=== PATIENT | female | born 1950 | race Caucasian/White ===

== ENCOUNTER 2017-04-03 18:01 | Emergency (ER) | payer MEDICARE, OTHER ==
[2017-04-03] MEDS ORDERED: fentaNYL 100 MCG/2 ML SDV IVPUSH ONE (19:05)
[2017-04-03] MEDS ORDERED: Sodium Chloride 0.9% 10 ML Syringe FLUSH PRN (19:05)
[2017-04-03] MEDS ORDERED: LORazepam 2 MG/ML MDV IVPUSH ONE (19:05)
--- NOTE | 2017-04-03 19:18 | EDM.PDOC ---
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 There is pain with urination. When she wiped herself, the first 12 hours there was some bleeding both in the toilet bowl and on the tissue. She was finally seen in the clinic 2 days ago because discomfort was not going away, was diagnosed with UTI and prescribed antibiotic, culture was negative. Symptoms have not improved in fact it got worse the pain is more intense and more frequent. Appetite is decreased. She did have nausea vomiting and sweating about 4 PM, one episode of emesis. No change in bowel habits, she always has loose stools 3-5 per day for years, she does occasionally get low potassium because this and consequently is on potassium replacement. No fever or chills She does feel a bit bloated. At it does feel like infection she's had in the past only much more intense. She 's been getting frequent urine infections, had for last year. Has seen urology and has had some surgical procedures done on her bladder to fix "the flap". She's been using Pyridium which is turned her urine orange, no improvement in her pain. Remote history of abdominal and inguinal hernia repair of hysterectomy and unilateral oophorectomy for endometriosis causing pain and subsequent oophorectomy of the other side because of the large ovarian cyst. Because of her chronic diarrhea she underwent negative colonoscopy and a CT scan 2 years ago, CT scan did show lower abdominal wall hernia which involved the bladder wall. Vaginal Pain Score (Numeric/FACES): 10 - Related Data Allergies Allergy/AdvReac Type Severity Reaction Status Date / Time codeine Allergy Chest Pain Verified 04/03/17 18:29 morphine Allergy Itching Verified 04/03/17 18:29 Home Meds: Home Meds Aspirin [Children's Aspirin] 81 mg PO BEDTIME 10/22/13 [History] atorvaSTATin [Lipitor] 10 mg PO BEDTIME 10/22/13 [History] Ascorbic Acid [Vitamin C] 1,000 mg PO DAILY 05/15/14 [History] Calcium Carbonate [Calcium] 1 tab PO BID 05/15/14 [History] Multivitamin with Minerals [Multiple Vitamin] 1 tab PO DAILY 05/15/14 [History] Omeprazole [Prilosec] 20 mg PO DAILY 05/15/14 [History] Sertraline [Zoloft] 150 mg PO DAILY 05/15/14 [History] Albuterol Sulfate [Ventolin Hfa] 2 puff INH Q4H PRN 11/19/15 [History] Magnesium Oxide [Magnesium] 1 tab PO BID 11/19/15 [History] Spironolactone [Aldactone] 25 mg PO BID 11/19/15 [History] Potassium Chloride [Klor-Con M20] 20 meq PO BID 11/23/15 [History] Cholestyramine/Sucrose [Cholestyramine] 4 gm PO TID 04/03/17 [History] Ciprofloxacin HCl [Cipro] 500 mg PO BID #14 tablet 04/03/17 [Rx] Diphenoxylate HCl/Atropine [Lomotil Tablet] 2 tab PO QID PRN 04/03/17 [History] Estrogens, Conjugated [Premarin] 1 tab PO DAILY 04/03/17 [History] Hydrocodone/Acetaminophen [Hydrocodon-Acetaminophen 5-325] 1 - 2 each PO Q4H PRN #8 tablet 04/03/17 [Rx] Melatonin 1 tab PO BEDTIME 04/03/17 [History] Phenazopyridine HCl 1 tab PO TID PRN 04/03/17 [History] Sulfamethoxazole/Trimethoprim [Bactrim Ds Tablet] 1 tab PO BID 04/03/17 [History ] Past Medical History HEENT History: Reports: Impaired Vision Cardiovascular History: Reports: Hypertension Respiratory History: Reports: COPD Gastrointestinal History: Reports: Chronic Diarrhea, GERD, Hiatal Hernia Genitourinary History: Reports: Other (See Below) Other Genitourinary History: 2 bladder surgeries 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: , 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 Musculoskeletal History: Reports: Arthritis, Back Pain, Chronic Psychiatric History: Reports: Depression Hematologic History: Reports: Other (See Below) Other Hematologic History: hypokalemia - Infectious Disease History Infectious Disease History: Reports: Chicken Pox, Measles, Mumps - Past Surgical History HEENT Surgical History: Reports: Tonsillectomy GI Surgical History: Reports: Appendectomy, Cholecystectomy, Colonoscopy, EGD, Hernia, Abdominal, Hernia, Inguinal Female Surgical History: Reports: Section, Hysterectomy, Oophorectomy Social & Family History - Family History Cardiac: Reports: CAD Other Cardiac Family History: father and brother CAD : Reports: None Neurological: Reports: Alzheimers Disease, Parkinson's Other Neurological Family History: mother alzheimers Psychiatric: Reports: Bipolar, Depression Endocrine/Metabolic: Reports: Diabetes, type II Other Endocrine/Metabolic Family History: dad type II diabetic Oncologic: Reports: Breast, Colon Other Oncologic Family History: maternal grandfather; sister had breast cancer - Tobacco Use Smoking Status *Q: Light Tobacco Smoker Years of Tobacco use: 54 Packs/Tins Daily: 0.5 Used Tobacco, but Quit: No Month Tobacco Last Used: october Hand Smoke Exposure: No - Alcohol Use Days Per Week of Alcohol Use: 0 - Recreational Drug Use Recreational Drug Use: No ED ROS GENERAL - Review of Systems Review Of Systems: See Below Constitutional: Reports: No Symptoms HEENT: Reports: No Symptoms Respiratory: Reports: No Symptoms Cardiovascular: Reports: No Symptoms GI/Abdominal: Reports: Abdominal Pain, Diarrhea (Chronic), Decreased Appetite, Nausea (Once), Vomiting (One episode) : Reports: Dysuria, Frequency, Hematuria (Initially), Incontinence, Other ( Spasms) Musculoskeletal: Reports: No Symptoms Skin: Reports: No Symptoms Neurological: Reports: No Symptoms Psychiatric: Reports: No Symptoms Hematologic/Lymphatic: Reports: No Symptoms Immunologic: Reports: No Symptoms ED EXAM, RENAL/ - Physical Exam Exam: See Below Exam Limited By: No Limitations General Appearance: Alert, Anxious, Moderate Distress (Having spasms of pain that causes her to wince, a and when she has spasm she is incontinent of small amounts of urine, is using pads to absorb the urine) Eye Exam: Bilateral Eye: Normal Inspection Ears: Normal External Exam Nose: Normal Inspection Throat/Mouth: Normal Inspection, Normal Voice Head: Atraumatic, Normocephalic Neck: Normal Inspection Respiratory/Chest: No Respiratory Distress, No Accessory Muscle Use Cardiovascular: Normal Peripheral Pulses, Regular Rate, Rhythm GI/Abdominal: Normal Bowel Sounds, Soft, Mass (Small abdominal wall hernia in the super pubic area which is tender but does not reproduce her symptoms) (Female) Exam: Normal External Exam, Other (Digital vaginal exam shows tenderness of the anterior wall but no masses lesions or discharge or bleeding from the vagina) Rectal (Female) Exam: Other (Hemorrhoidal tags but no rectal masses or bleeding) Extremities: Normal Inspection Neurological: Alert, Oriented, No Motor/Sensory Deficits Psychiatric: Normal Affect, Anxious Skin Exam: Warm, Dry, Intact, Normal Color, No Rash Lymphatic: No Adenopathy Course - Vital Signs Last Recorded V/S: Last Vital Signs Temp 36.8 C 04/03/17 18:27 Pulse 87 04/03/17 20:15 Resp 16 04/03/17 20:15 BP 105/67 04/03/17 20:15 Pulse Ox 92 L 04/03/17 20:15 - Orders/Labs/Meds Orders: Active Orders 24 hr Category Date Time Status Saline Lock Insert [OM.PC] Stat Oth 04/03/17 19:05 Ordered Labs: Laboratory Tests 04/03/17 04/03/17 04/03/17 Range/Units 19:01 19:17 19:17 WBC 10.9 (4.5-11.0) K/uL RBC 4.74 (3.30-5.50) M/uL Hgb 14.8 (12.0-15.0) g/dL Hct 45.5 (36.0-48.0) % MCV 96 (80-98) fL MCH 31 (27-31) pg MCHC 33 (32-36) % Plt Count 126 L (150-400) K/uL Sodium 140 (140-148) mmol/L Potassium 4.9 (3.6-5.2) mmol/L Chloride 105 (100-108) mmol/L Carbon Dioxide 18 L (21-32) mmol/L Anion Gap 21.9 H (5.0-14.0) mmol/L BUN 32 H D (7-18) mg/dL Creatinine 2.1 H D (0.6-1.0) mg/dL Est Cr Clr Drug Dosing 19.88 mL/min Estimated GFR (MDRD) 24 L (>60) Glucose 88 (74-106) mg/dL Calcium 9.0 (8.5-10.1) mg/dL Urine Color Mobile Urine Appearance Cloudy Urine pH 5.0 (4.5-8.0) Ur Specific [place] 1.025 (1.008-1.030) Urine Protein 500 H (NEGATIVE) mg/dL Urine Glucose (UA) Normal (NEGATIVE) mg/dL Urine Ketones Negative (NEGATIVE) mg/dL Urine Occult Blood Large (NEGATIVE) Urine Nitrite Positive H (NEGATIVE) Urine Bilirubin Moderate (NEGATIVE) Urine Urobilinogen >=12 H (NORMAL) mg/dL Ur Leukocyte Esterase Moderate (NEGATIVE) Urine RBC Semi-packed H (0-5) Urine WBC >100 H (0-5) Ur Epithelial Cells Moderate Amorphous Sediment Not seen Urine Bacteria Many Urine Mucus Not seen Urine Other Meds: Medications Discontinued Medications Generic Name Dose Route Start Last Admin Trade Name Freq PRN Reason Stop Dose Admin Fentanyl 50 mcg 04/03/17 19:05 04/03/17 19:49 Sublimaze IVPUSH 04/03/17 19:06 50 mcg ONETIME ONE Administration Lorazepam 1 mg 04/03/17 19:05 04/03/17 19:50 Ativan IVPUSH 04/03/17 19:06 1 mg ONETIME ONE Administration Sodium Chloride 10 ml 04/03/17 19:05 04/03/17 19:55 Saline Flush FLUSH 10 ml ASDIRECTED PRN Administration Keep Vein Open - Re-Assessments/Exams Free Text/Narrative Re-Assessment/Exam: 04/03/17 19:20 66-year-old female with pelvic spasms associated with urinary incontinence and dysuria. This is despite being on antibiotics. Culture was negative. Symptoms could be due to urinary tract infection, other possibility is include pelvic mass, incarceration of the bladder wall but her exam is not consistent with this. She may have resistant infection. Bladder scan shows only 10 mL urine retained after urination Intravenous block, lorazepam 1 mg IV for spasms, fentanyl 50 g IV for pain 04/03/17 21:41 symptoms improve with the above CBC is normal but urinalysis shows marked pyuria and is positive for nitrites strongly suggestive of urinary tract infection. Electrolytesare normal urea and creatinine are elevated with a marked decrease in GFR compared to previous Patient reported she was drinking well Stop sulfa antibiotic start ciprofloxacin Hydrocodone for pain as prescribed below. Get rechecked if not improving within 24-48 hours as instructed below.Follow-up otherwise is crucial as creatinine needs to get rechecked 04/03/17 21:42 04/03/17 21:45 04/04/17 07:07 Unfortunately I do not emphasize the change in renal function prior to discharge. I notified the patient by phone in the morning that she needs to have a creatinine rechecked, she does have a follow-up appointment with her physician in 3 days time. Departure - Departure Time of Disposition: 20:11 Disposition: Home, Self-Care 01 Condition: Good Clinical Impression: UTI, Urinary tract infectious disease, Bladder spasms, Elevated serum creatinine - Discharge Information Prescriptions: Ciprofloxacin HCl [Cipro] 500 mg PO BID #14 tablet Hydrocodone/Acetaminophen [Hydrocodon-Acetaminophen 5-325] 1 - 2 each PO Q4H PRN #8 tablet PRN Reason: Moderate to severe pain Instructions: Urinary Tract Infection, Adult, [id number] Referrals: Mireya Hogan PA [Primary Care Provider] - Forms: ED Department Discharge Additional Instructions: Stop taking the sulfa antibiotic Get rechecked in 24-48 hours if you're not improving, you develop high fever, or repeated vomiting, or pain you're unable to manage at home Otherwise see your doctor in about 10 days to have a repeat urine testing done - My Orders Last 24 Hours: My Active Orders 04/03/17 19:05 Saline Lock Insert [OM.PC] Stat - Assessment/Plan Last 24 Hours: My Active Orders 04/03/17 19:05 Saline Lock Insert [OM.PC] Stat
[2017-04-03 20:16] VITALS: BP 105/67
== END 2017-04-03 20:40 | disposition home or self-care (01) ==
LOC: JP.ED 18:01
DX: N39.0 Urinary tract infection, site not specified (principal); N32.89 Other specified disorders of bladder; R79.89 Other specified abnormal findings of blood chemistry; F17.210 Nicotine dependence, cigarettes, uncomplicated; I10 Essential (primary) hypertension; J44.9 Chronic obstructive pulmonary disease, unspecified; K21.9 Gastro-esophageal reflux disease without esophagitis; F32.9 Major depressive disorder, single episode, unspecified; Z79.82 Long term (current) use of aspirin; Z79.899 Other long term (current) drug therapy; Z88.5 Allergy status to narcotic agent
CPT/HCPCS: 36415; 51798; 80048; 81001; 85027; 96374; 96375; 99284; J2060; J3010; J7050

== ENCOUNTER 2017-09-27 23:37 | Emergency (ER) | payer MEDICARE, OTHER ==
[2017-09-27 23:50] VITALS: BP 150/83
--- NOTE | 2017-09-28 00:14 | EDM.PDOC ---
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 Tonight as she was just getting into bed she felt something and reached for a Kleenix and turned on the light. Her nose was again bleeding with most of the blood going down her throat. She does not have a hx of nose bleeds. She is only on a baby aspirin daily as an anti-coagulant. She has not missed any of her blood pressure meds. There was no trauma. Bleeding began around 11 pm, or about an hour before arrival. 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 Bleeding has been from both sides at various times today she thinks. Onset: Today Onset Date: 09/27/17 Duration: Hour(s): (1), Constant Location: Reports: Face (nose) Quality: Reports: Other (no pain) Severity: Moderate Improves with: Reports: None Worsens with: Reports: None Context: Reports: Other (unknown) Associated Symptoms: Reports: No Other Symptoms Treatments MANAGER POLICY: Reports: Other (see below) (none) - Related Data Allergies Allergy/AdvReac Type Severity Reaction Status Date / Time codeine Allergy Chest Pain Verified 09/27/17 23:49 morphine Allergy Itching Verified 09/27/17 23:49 Home Meds: Home Meds Aspirin [Children's Aspirin] 81 mg PO BEDTIME 10/22/13 [History] atorvaSTATin [Lipitor] 10 mg PO BEDTIME 10/22/13 [History] Ascorbic Acid [Vitamin C] 1,000 mg PO DAILY 05/15/14 [History] Calcium Carbonate [Calcium] 1 tab PO BID 05/15/14 [History] Multivitamin with Minerals [Multiple Vitamin] 1 tab PO DAILY 05/15/14 [History] Omeprazole [Prilosec] 20 mg PO DAILY 05/15/14 [History] Sertraline [Zoloft] 150 mg PO DAILY 05/15/14 [History] Albuterol Sulfate [Ventolin Hfa] 2 puff INH Q4H PRN 11/19/15 [History] Magnesium Oxide [Magnesium] 1 tab PO BID 11/19/15 [History] Spironolactone [Aldactone] 25 mg PO BID 11/19/15 [History] Potassium Chloride [Klor-Con M20] 20 meq PO BID 11/23/15 [History] Cholestyramine/Sucrose [Cholestyramine] 4 gm PO TID 04/03/17 [History] Ciprofloxacin HCl [Cipro] 500 mg PO BID #14 tablet 04/03/17 [Rx] Diphenoxylate HCl/Atropine [Lomotil Tablet] 2 tab PO QID PRN 04/03/17 [History] Estrogens, Conjugated [Premarin] 1 tab PO DAILY 04/03/17 [History] Hydrocodone/Acetaminophen [Hydrocodon-Acetaminophen 5-325] 1 - 2 each PO Q4H PRN #8 tablet 04/03/17 [Rx] Melatonin 1 tab PO BEDTIME 04/03/17 [History] Phenazopyridine HCl 1 tab PO TID PRN 04/03/17 [History] Sulfamethoxazole/Trimethoprim [Bactrim Ds Tablet] 1 tab PO BID 04/03/17 [History ] Past Medical History HEENT History: Reports: Impaired Vision Cardiovascular History: Reports: Hypertension Respiratory History: Reports: COPD Gastrointestinal History: Reports: Chronic Diarrhea, GERD, Hiatal Hernia Genitourinary History: Reports: Other (See Below) Other Genitourinary History: 2 bladder surgeries 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: , 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 Musculoskeletal History: Reports: Arthritis, Back Pain, Chronic Psychiatric History: Reports: Depression Hematologic History: Reports: Other (See Below) Other Hematologic History: hypokalemia - Infectious Disease History Infectious Disease History: Reports: Chicken Pox, Measles, Mumps - Past Surgical History HEENT Surgical History: Reports: Tonsillectomy GI Surgical History: Reports: Appendectomy, Cholecystectomy, Colonoscopy, EGD, Hernia, Abdominal, Hernia, Inguinal Female Surgical History: Reports: Section, Hysterectomy, Oophorectomy Social & Family History - Family History Family Medical History: Noncontributory Cardiac: Reports: CAD Other Cardiac Family History: father and brother CAD : Reports: None Neurological: Reports: Alzheimers Disease, Parkinson's Other Neurological Family History: mother alzheimers Psychiatric: Reports: Bipolar, Depression Endocrine/Metabolic: Reports: Diabetes, type II Other Endocrine/Metabolic Family History: dad type II diabetic Oncologic: Reports: Breast, Colon Other Oncologic Family History: maternal grandfather; sister had breast cancer - Tobacco Use Smoking Status *Q: Current Every Day Smoker Years of Tobacco use: 54 Packs/Tins Daily: 1 - Caffeine Use Caffeine Use: Reports: Soda - Recreational Drug Use Recreational Drug Use: No ED ROS ENT - Review of Systems Review Of Systems: See Below Constitutional: Reports: No Symptoms HEENT: Reports: Nosebleed Respiratory: Reports: No Symptoms Cardiovascular: Reports: No Symptoms Skin: Reports: No Symptoms Neurological: Reports: No Symptoms ED EXAM, ENT - Physical Exam Exam: See Below Exam Limited By: No Limitations General Appearance: Alert, WD/WN, No Apparent Distress Eye Exam: Bilateral Eye: Normal Inspection Ears: Normal External Exam, Normal Canal, Hearing Grossly Normal, Normal TMs Nose: Active Bleeding Mouth/Throat: Normal Inspection, Normal Lips, Normal Oropharynx, Bleeding Course - Vital Signs Last Recorded V/S: Last Vital Signs Temp 35.9 C 09/27/17 23:49 Pulse 100 09/27/17 23:49 Resp 18 09/27/17 23:49 BP 150/83 H 09/27/17 23:49 Pulse Ox 97 09/27/17 23:49 - Orders/Labs/Meds Meds: Medications Discontinued Medications Generic Name Dose Route Start Last Admin Trade Name Freq PRN Reason Stop Dose Admin Hydrocodone Bitart/Acetaminophen 1 tab 09/28/17 00:26 [place] 325-5 Mg PO 09/28/17 00:27 ONETIME ONE Departure - Departure Time of Disposition: 00:40 Disposition: Home, Self-Care 01 Condition: Fair Clinical Impression: Acute posterior epistaxis HTN (hypertension) Qualifiers: Hypertension type: essential hypertension Qualified Code(s): I10 - Essential ( primary) hypertension - Discharge Information Referrals: Mireya Hogan PA [Primary Care Provider] - Forms: ED Department Discharge
[2017-09-28] MEDS ORDERED: Acetaminophen/HYDROcodone 325-5 MG Tab PO ONE (00:26)
== END 2017-09-28 00:45 | disposition home or self-care (01) ==
LOC: JP.ED 23:37
DX: R04.0 Epistaxis (principal); I10 Essential (primary) hypertension; F17.210 Nicotine dependence, cigarettes, uncomplicated; Z88.5 Allergy status to narcotic agent; Z79.899 Other long term (current) drug therapy
CPT/HCPCS: 99283; A9270

== ENCOUNTER 2020-01-11 17:23 | Emergency (ER) | payer MEDICARE ==
[2020-01-11 17:40] VITALS: BP 139/71; PULSE 85
[2020-01-11] MEDS ORDERED: cefTRIAXone 1 GM Vial IM ONE (19:07)
--- NOTE | 2020-01-11 19:13 | EDM.PDOC ---
ED HPI GENERAL MEDICAL PROBLEM - General Chief Complaint: Genitourinary Problem Stated Complaint: BLADDER INFECTION Time Seen by Provider: 01/11/20 19:09 Source of Information: Reports: Patient History Limitations: Reports: No Limitations - History of Present Illness INITIAL COMMENTS - FREE TEXT/NARRATIVE: pt started having symptoms last nite. She has frequent infections. Cipro has worked well for her in the past. Onset: Other ( started last nite. ) Duration: Hour(s): Location: Reports: Generalized Associated Symptoms: Reports: Other (dyuria) Groin Pain Score (Numeric/FACES): 10 - Related Data Allergies Allergy/AdvReac Type Severity Reaction Status Date / Time codeine Allergy Chest Pain Verified 09/27/17 23:49 morphine Allergy Itching Verified 09/27/17 23:49 Home Meds: Home Meds Aspirin [Children's Aspirin] 81 mg PO BEDTIME 10/22/13 [History] atorvaSTATin [Lipitor] 10 mg PO BEDTIME 10/22/13 [History] Ascorbic Acid [Vitamin C] 1,000 mg PO DAILY 05/15/14 [History] Calcium Carbonate [Calcium] 1 tab PO BID 05/15/14 [History] Multivitamin with Minerals [Multiple Vitamin] 1 tab PO DAILY 05/15/14 [History] Omeprazole [Prilosec] 20 mg PO DAILY 05/15/14 [History] Sertraline [Zoloft] 150 mg PO DAILY 05/15/14 [History] Albuterol Sulfate [Ventolin Hfa] 2 puff INH Q4H PRN 11/19/15 [History] Magnesium Oxide [Magnesium] 1 tab PO BID 11/19/15 [History] Spironolactone [Aldactone] 25 mg PO BID 11/19/15 [History] Potassium Chloride [Klor-Con M20] 20 meq PO BID 11/23/15 [History] Diphenoxylate HCl/Atropine [Lomotil Tablet] 2 tab PO QID PRN 04/03/17 [History] Estrogens, Conjugated [Premarin] 1 tab PO DAILY 04/03/17 [History] Hydrocodone/Acetaminophen [Hydrocodon-Acetaminophen 5-325] 1 - 2 each PO Q4H PRN #8 tablet 04/03/17 [Rx] Melatonin 1 tab PO BEDTIME 04/03/17 [History] Phenazopyridine HCl 1 tab PO TID PRN 04/03/17 [History] Sulfamethoxazole/Trimethoprim [Bactrim Ds Tablet] 1 tab PO BID 04/03/17 [History] Past Medical History HEENT History: Reports: Impaired Vision Cardiovascular History: Reports: Hypertension Respiratory History: Reports: COPD Gastrointestinal History: Reports: Chronic Diarrhea, GERD, Hiatal Hernia Genitourinary History: Reports: Other (See Below) Other Genitourinary History: 2 bladder surgeries [employer] History: Reports: , Spontaneous Musculoskeletal History: Reports: Arthritis, Back Pain, Chronic Psychiatric History: Reports: Depression Hematologic History: Reports: Other (See Below) Other Hematologic History: hypokalemia - Infectious Disease History Infectious Disease History: Reports: Chicken Pox, Measles, Mumps - Past Surgical History Head Surgeries/Procedures: Reports: None HEENT Surgical History: Reports: Tonsillectomy Cardiovascular Surgical History: Reports: None GI Surgical History: Reports: Appendectomy, Cholecystectomy, Colonoscopy, EGD, Hernia, Abdominal, Hernia, Inguinal Female Surgical History: Reports: Section, Hysterectomy, Oophorectomy Musculoskeletal Surgical History: Reports: None Dermatological Surgical History: Reports: None Social & Family History - Family History Family Medical History: Noncontributory Cardiac: Reports: CAD Other Cardiac Family History: father and brother CAD : Reports: None Neurological: Reports: Alzheimers Disease, Parkinson's Other Neurological Family History: mother alzheimers Psychiatric: Reports: Bipolar, Depression Endocrine/Metabolic: Reports: Diabetes, type II Other Endocrine/Metabolic Family History: dad type II diabetic Oncologic: Reports: Breast, Colon Other Oncologic Family History: maternal grandfather; sister had breast cancer - Tobacco Use Smoking Status *Q: Former Smoker Years of Tobacco use: 50 Packs/Tins Daily: 0.5 Used Tobacco, but Quit: Yes Month/Year Tobacco Last Used: December 2019 - Caffeine Use Caffeine Use: Reports: Coffee, Soda - Recreational Drug Use Recreational Drug Use: No ED ROS GENERAL - Review of Systems Review Of Systems: See Below Constitutional: Reports: No Symptoms HEENT: Reports: No Symptoms Respiratory: Reports: No Symptoms Cardiovascular: Reports: No Symptoms Endocrine: Reports: No Symptoms GI/Abdominal: Reports: No Symptoms : Reports: Dysuria, Frequency Musculoskeletal: Reports: No Symptoms Skin: Reports: No Symptoms ED EXAM, GI/ABD - Physical Exam Exam: See Below Text/Narrative:: pt arrived with pain with urination she has a history of frequent urination Exam Limited By: No Limitations General Appearance: Alert, Anxious, Moderate Distress (Female) Exam: Other (pt has some back pain she has dysuria. She has no fever. ) Course - Vital Signs Last Recorded V/S: Last Vital Signs Temp 36.1 C 01/11/20 17:37 Pulse 85 01/11/20 17:37 Resp 18 01/11/20 17:37 BP 139/71 01/11/20 17:37 Pulse Ox 92 L 01/11/20 17:37 - Orders/Labs/Meds Orders: Active Orders 24 hr Category Date Time Status CULTURE URINE [RM] Stat Lab 01/11/20 19:04 Ordered Lidocaine 1% [Xylocaine-MPF 1%] Med 01/11/20 19:08 Once 5 ml INJECT ONETIME ONE Labs: Laboratory Tests 01/11/20 Range/Units 17:35 Urine Color Yellow (YELLOW) Urine Appearance Slightly cloudy A (CLEAR) Urine pH 6.5 (5.0-8.0) Ur Specific [place] 1.010 (1.008-1.030) Urine Protein 100 H (NEGATIVE) mg/dL Urine Glucose (UA) Negative (NEGATIVE) mg/dL Urine Ketones Negative (NEGATIVE) mg/dL Urine Occult Blood Large H (NEGATIVE) Urine Nitrite Negative (NEGATIVE) Urine Bilirubin Negative (NEGATIVE) Urine Urobilinogen 0.2 (0.2-1.0) EU/dL Ur Leukocyte Esterase Large H (NEGATIVE) Urine RBC 30-40 H (0-5) Urine WBC >100 H (0-5) Ur Epithelial Cells Rare Urine Bacteria Few Meds: Medications Discontinued Medications Generic Name Dose Route Start Last Admin Trade Name Samq PRN Reason Stop Dose Admin Ceftriaxone Sodium 1 gm 01/11/20 19:07 Rocephin IM 01/11/20 19:08 ONETIME ONE - Re-Assessments/Exams Free Text/Narrative Re-Assessment/Exam: 01/11/20 19:12 pt was given rocephen 1 gm im. Departure - Departure Time of Disposition: 19:12 Disposition: Home, Self-Care 01 Condition: Fair Clinical Impression: UTI (urinary tract infection) - Discharge Information Referrals: Mireya Hogan PA [Primary Care Provider] - Care Plan Goals: push fluids, cipro 500mg bid for 10 days, pyridium 200mg tid. recheck urine with her own provider in 2 weeks. Sepsis Event Note (ED) - Evaluation Sepsis Screening Result: No Definite Risk - Focused Exam Vital Signs: Vital Signs Temp Pulse Resp BP Pulse Ox 01/11/20 17:37 36.1 C 85 18 139/71 92 L - My Orders Last 24 Hours: My Active Orders 01/11/20 19:04 CULTURE URINE [RM] Stat 01/11/20 19:08 Lidocaine 1% [Xylocaine-MPF 1%] 5 ml INJECT ONETIME ONE - Assessment/Plan Last 24 Hours: My Active Orders 01/11/20 19:04 CULTURE URINE [RM] Stat 01/11/20 19:08 Lidocaine 1% [Xylocaine-MPF 1%] 5 ml INJECT ONETIME ONE
[2020-01-11] MEDS ORDERED: Phenazopyridine 95 MG Tab PO ONE (19:16)
== END 2020-01-11 19:28 | disposition home or self-care (01) ==
LOC: JP.ED 17:23
DX: N39.0 Urinary tract infection, site not specified (principal); I10 Essential (primary) hypertension; J44.9 Chronic obstructive pulmonary disease, unspecified; K21.9 Gastro-esophageal reflux disease without esophagitis; M19.90 Unspecified osteoarthritis, unspecified site; F32.9 Major depressive disorder, single episode, unspecified; Z87.891 Personal history of nicotine dependence; Z98.890 Other specified postprocedural states; Z90.49 Acquired absence of other specified parts of digestive tract; Z90.710 Acquired absence of both cervix and uterus; Z90.722 Acquired absence of ovaries, bilateral; Z88.5 Allergy status to narcotic agent; Z79.82 Long term (current) use of aspirin; Z79.899 Other long term (current) drug therapy
CPT/HCPCS: 81001; 87086; 96372; 99283; A9270; J0696; J2001

== ENCOUNTER 2021-07-22 17:25 | Emergency (ER) | payer MEDICARE ==
[2021-07-22] MEDS ORDERED: Vancomycin 2 GM in Sodium Chloride 0.9% 500 ML IV ONE (19:22)
[2021-07-22 19:35] VITALS: BP 111/56; PULSE 96
== END 2021-07-22 20:44 | disposition home or self-care (01) ==
LOC: JP.ED 17:25
DX: R31.0 Gross hematuria (principal); N32.89 Other specified disorders of bladder; E78.00 Pure hypercholesterolemia, unspecified; I12.9 Hypertensive chronic kidney disease with stage 1 through stage 4 chronic kidney disease, or unspecified chronic kidney disease; N18.9 Chronic kidney disease, unspecified; K21.9 Gastro-esophageal reflux disease without esophagitis; J44.9 Chronic obstructive pulmonary disease, unspecified; Z88.5 Allergy status to narcotic agent; Z79.82 Long term (current) use of aspirin; Z79.899 Other long term (current) drug therapy; Z87.891 Personal history of nicotine dependence
CPT/HCPCS: 36415; 74176; 80053; 85025; 99283; 99284-25

== ENCOUNTER 2022-06-17 18:52 | Emergency (ER) | payer MEDICARE ==
[2022-06-17 19:04] VITALS: BP 174/82; PULSE 97
[2022-06-17 19:47] LABS: ESTIMATED GFR 48 mL/min (>60)
[2022-06-17 20:01] LABS: CORONAVIRUS COVID-19 NAA NEGATIVE (NEGATIVE)
== END 2022-06-17 20:34 | disposition home or self-care (01) ==
LOC: JP.ED 18:52
DX: J44.9 Chronic obstructive pulmonary disease, unspecified (principal); J21.0 Acute bronchiolitis due to respiratory syncytial virus; R09.02 Hypoxemia; E78.00 Pure hypercholesterolemia, unspecified; K21.9 Gastro-esophageal reflux disease without esophagitis; I12.9 Hypertensive chronic kidney disease with stage 1 through stage 4 chronic kidney disease, or unspecified chronic kidney disease; N18.9 Chronic kidney disease, unspecified; M19.90 Unspecified osteoarthritis, unspecified site; Z88.5 Allergy status to narcotic agent; Z79.899 Other long term (current) drug therapy
CPT/HCPCS: 0241U; 36415; 71046; 80053; 83605; 85025; 86140; 99283; 99285

== ENCOUNTER 2023-05-18 05:59 | Day surgery (SDC) | payer MEDICARE ==
[2023-05-18] MEDS ORDERED: Sodium Chloride 0.9% 10 ML Syringe FLUSH PRN (06:30)
[2023-05-18 08:34] VITALS: BP 134/53; PULSE 63
== END 2023-05-18 08:45 | disposition home or self-care (01) ==
LOC: JP.SDS 05:59
PROVIDERS: ATTEND Ophthalmology
DX: H26.9 Unspecified cataract (principal); J44.9 Chronic obstructive pulmonary disease, unspecified; K21.9 Gastro-esophageal reflux disease without esophagitis; F17.210 Nicotine dependence, cigarettes, uncomplicated; Z79.899 Other long term (current) drug therapy; Z88.8 Allergy status to other drugs, medicaments and biological substances; Z88.5 Allergy status to narcotic agent
CPT/HCPCS: 66984; J3490; V2632

== ENCOUNTER 2023-06-01 07:14 | Day surgery (SDC) | payer MEDICARE ==
[2023-06-01] MEDS ORDERED: Sodium Chloride 0.9% 10 ML Syringe FLUSH PRN (08:00)
[2023-06-01 08:48] VITALS: BP 160/67; PULSE 101
== END 2023-06-01 08:52 | disposition home or self-care (01) ==
LOC: JP.SDS 07:14
PROVIDERS: ATTEND Ophthalmology
DX: H26.9 Unspecified cataract (principal); J44.9 Chronic obstructive pulmonary disease, unspecified; K21.9 Gastro-esophageal reflux disease without esophagitis; N18.9 Chronic kidney disease, unspecified
CPT/HCPCS: 66984; J3490; V2632